=== PATIENT | male | born 1985 | race Caucasian/White ===

== ENCOUNTER 2017-08-15 15:31 | Emergency (ER) | payer BC, OTHER ==
[2017-08-15] MEDS ORDERED: Sodium Chloride 0.9% 10 ML Syringe FLUSH PRN (15:46)
[2017-08-15] MEDS ORDERED: Lactated Ringers 1,000 ML IV SCH (16:00)
[2017-08-15 17:07] LABS: CHLORIDE,CL 103 mmol/L (98-107); SODIUM,NA 142 mmol/L (136-145)
--- NOTE | 2017-08-15 19:18 | EDM.PDOC ---
ED HPI GENERAL MEDICAL PROBLEM - General Chief Complaint: General Time Seen by Provider: 08/15/17 15:34 Source of Information: Reports: Patient History Limitations: Reports: No Limitations - History of Present Illness INITIAL COMMENTS - FREE TEXT/NARRATIVE: Pt. presents to ER with complaints of CO exposure. States that he was using a "K12" type saw in his enclosed basement trying to cut an egress hole. Pt. states that he began to feel somewhat lightheaded and weak. He denies any chest pain or shortness of breath. No weakness. Pt. states that he was exerting himself as well which may have contributed to how he is feeling. He denies and headache. No nausea, vomiting, or diarrhea reported. He denies any prodrome prior to this event. Onset: Today Location: Reports: Generalized - Related Data Allergies Allergy/AdvReac Type Severity Reaction Status Date / Time No Known Drug Allergies Allergy Other Verified 09/10/15 21:01 Home Meds: Home Meds Fexofenadine/Pseudoephedrine [Key-D 24 Hour Tablet] 1 tab PO DAILY 09/10/15 [History] Past Medical History - Past Health History Medical/Surgical History: Denies Medical/Surgical History HEENT History: Reports: Allergic Rhinitis Social & Family History - Family History Family Medical History: Noncontributory ED ROS GENERAL - Review of Systems Review Of Systems: See Below Constitutional: Reports: Weakness HEENT: Reports: No Symptoms Respiratory: Reports: No Symptoms. Denies: Shortness of Breath, Wheezing, Cough Cardiovascular: Reports: Lightheadedness. Denies: Chest Pain, Claudication, Dyspnea on Exertion, Orthopnea, Palpitations, PND, Syncope Endocrine: Reports: No Symptoms GI/Abdominal: Reports: No Symptoms : Reports: No Symptoms Musculoskeletal: Reports: No Symptoms Skin: Reports: No Symptoms Neurological: Reports: No Symptoms Psychiatric: Reports: No Symptoms Hematologic/Lymphatic: Reports: No Symptoms Immunologic: Reports: No Symptoms ED EXAM, GENERAL - Physical Exam Exam: See Below Exam Limited By: No Limitations General Appearance: Alert, Lethargic Eye Exam: Bilateral Eye: EOMI, Normal Fundi, Normal Inspection, PERRL Ears: Normal External Exam, Normal Canal, Hearing Grossly Normal, Normal TMs Ear Exam: Bilateral Ear: Auricle Normal, Canal Normal, TM normal Nose: Normal Inspection, Normal Mucosa, No Blood Throat/Mouth: Normal Inspection, Normal Lips, Normal Teeth, Normal Gums, Normal Oropharynx, Normal Voice, No Airway Compromise Head: Atraumatic, Normocephalic Neck: Normal Inspection, Supple, Non-Tender, Full Range of Motion Respiratory/Chest: No Respiratory Distress, Lungs Clear, Normal Breath Sounds, No Accessory Muscle Use, Chest Non-Tender Cardiovascular: Normal Peripheral Pulses, Regular Rate, Rhythm, No Edema, No Gallop, No JVD, No Murmur, No Rub GI/Abdominal: Normal Bowel Sounds, Soft, Non-Tender, No Organomegaly, No Distention, No Abnormal Bruit, No Mass Back Exam: Normal Inspection, Full Range of Motion, NT Extremities: Normal Inspection, Normal Range of Motion, Non-Tender, Normal Capillary Refill, No Pedal Edema Neurological: Alert, Oriented, CN II-XII Intact, Normal Cognition, Normal Gait, Normal Reflexes, No Motor/Sensory Deficits Psychiatric: Normal Affect, Normal Mood Skin Exam: Warm, Dry, Intact, Normal Color, No Rash Lymphatic: No Adenopathy EKG INTERPRETATION Rhythm: NSR [place]: Normal P-Wave: Present QRS: Normal ST-T: Normal QT: Normal Comparison: NA - No Prior EKG Course - Orders/Labs/Meds Orders: Active Orders 24 hr Category Date Time Status EKG Documentation Completion [RC] STAT Care 08/15/17 15:47 Active Oxygen Therapy [RC] PRN Care 08/15/17 15:46 Active Lactated Ringers [Ringers, Lactated] 1,000 ml Med 08/15/17 16:00 Active IV ASDIRECTED Sodium Chloride 0.9% [Saline Flush] Med 08/15/17 15:46 Active 10 ml FLUSH ASDIRECTED PRN Peripheral IV Insertion Adult [OM.PC] Routine Oth 08/15/17 15:47 Ordered Medication Orders Lactated Ringer's (Ringers, Lactated) 1,000 mls @ 500 mls/hr IV ASDIRECTED HAILEY Sodium Chloride (Saline Flush) 10 ml FLUSH ASDIRECTED PRN PRN Reason: Keep Vein Open Labs: Laboratory Tests 08/15/17 08/15/17 08/15/17 Range/Units 16:20 16:20 16:20 WBC 8.8 (4.0-10.0) x10^3/uL RBC 5.61 (4.5-6.0) x10^6/uL Hgb 17.3 (14.0-18.0) g/dL Hct 48.4 (40.0-52.0) % MCV 86.3 (78.0-93.0) fL MCH 30.8 (26.0-32.0) pg MCHC 35.7 (32.0-36.0) g/dL RDW Coeff of Duyen 13.8 (10.0-15.0) % Plt Count 187 (130-400) x10^3/uL Neut % (Auto) 72.6 (50.0-80.0) % Lymph % (Auto) 15.3 L (25.0-50.0) % Coles % (Auto) 9.1 (2.0-11.0) % Eos % (Auto) 2.8 (0.0-4.0) % Baso % (Auto) 0.2 (0.2-1.2) % PT 9.9 (9.6-11.4) SEC INR 0.9 L (2.0-3.5) Sodium 142 (136-145) mmol/L Potassium 3.6 (3.5-5.1) mmol/L Chloride 103 (98-107) mmol/L Carbon Dioxide 27 (21-32) mmol/L Anion Gap 15.6 (10-20) mmol/L BUN 18 (7-18) mg/dL Creatinine 1.3 (0.70-1.30) mg/dL Est Cr Clr Drug Dosing TNP Estimated GFR (MDRD) > 60 Glucose 97 (74-106) mg/dL Calcium 10.0 (8.5-10.1) mg/dL Corrected Calcium 9.52 (8.5-10.1) mg/dL Phosphorus 3.0 (2.6-4.7) mg/dL Magnesium 2.1 (1.8-2.4) mg/dL Total Bilirubin 0.5 (0.2-1.0) mg/dL AST 34 (15-37) U/L ALT 69 H (16-63) U/L Alkaline Phosphatase 65 (46-116) U/L Troponin I < 0.017 (<=0.056) ng/mL C-Reactive Protein < 0.2 (<=0.9) mg/dL NT-Pro-B Natriuret Pep 52 (<=125) pg/mL Total Protein 8.2 (6.4-8.2) g/dL Albumin 4.6 (3.4-5.0) g/dL Globulin 3.6 Albumin/Globulin Ratio 1.28 Meds: Medications Generic Name Dose Route Start Last Admin Trade Name Amparo PRN Reason Stop Dose Admin Lactated Ringer's 1,000 mls @ 500 mls/hr 08/15/17 16:00 Ringers, Lactated IV ASDIRECTED HAILEY Sodium Chloride 10 ml 08/15/17 15:46 Saline Flush FLUSH ASDIRECTED PRN Keep Vein Open - Re-Assessments/Exams Free Text/Narrative Re-Assessment/Exam: 08/15/17 19:22 Pt. initial CO reading on CO monitor was 11. Pt. placed on NRB at 15L/min over approx. 2 hours. CO reading at discharge was 7 at time of discharge and pt. was feeling better. Departure - Departure Time of Disposition: 19:27 Disposition: Home, Self-Care 01 Clinical Impression: Carbon monoxide poisoning, Dehydration - Discharge Information Instructions: Carbon Monoxide Poisoning, [id number] Referrals: PCP,Not In Area [Primary Care Provider] - Forms: ED Department Discharge Additional Instructions: Follow-up in clinic as needed. Drink plenty of fluids. Return to ER if increased shortness of breath or chest pain. - My Orders Last 24 Hours: My Active Orders 08/15/17 15:46 Oxygen Therapy [RC] PRN Sodium Chloride 0.9% [Saline Flush] 10 ml FLUSH ASDIRECTED PRN 08/15/17 15:47 EKG Documentation Completion [RC] STAT Peripheral IV Insertion Adult [OM.PC] Routine 08/15/17 16:00 Lactated Ringers [Ringers, Lactated] 1,000 ml IV ASDIRECTED - Assessment/Plan Last 24 Hours: My Active Orders 08/15/17 15:46 Oxygen Therapy [RC] PRN Sodium Chloride 0.9% [Saline Flush] 10 ml FLUSH ASDIRECTED PRN 08/15/17 15:47 EKG Documentation Completion [RC] STAT Peripheral IV Insertion Adult [OM.PC] Routine 08/15/17 16:00 Lactated Ringers [Ringers, Lactated] 1,000 ml IV ASDIRECTED
[2017-08-15 22:37] VITALS: BP 128/76
== END 2017-08-15 19:04 | disposition home or self-care (01) ==
LOC: VM.ED 15:31
DX: T58.8X1A Toxic effect of carbon monoxide from other source, accidental (unintentional), initial encounter (principal); E86.0 Dehydration; Z79.899 Other long term (current) drug therapy
CPT/HCPCS: 36415; 80053; 83735; 83880; 84100; 84484; 85025; 85610; 86140; 93005; 94760; 96360; 99284

== ENCOUNTER 2022-05-03 04:50 | Emergency (ER) | payer OTHER ==
[2022-05-03 05:37] LABS: ANION GAP 9.9 mmol/L (5-15); CHLORIDE,CL 104 mmol/L (98-107); ESTIMATED GFR 100 mL/min (>=60); SODIUM,NA 142 mmol/L (136-145)
[2022-05-03] MEDS ORDERED: Ketorolac 30 MG/ML SDV IVPUSH ONE (06:13)
[2022-05-03] MEDS ORDERED: Ondansetron 4 MG/2 ML SDV IVPUSH ONE (06:13)
[2022-05-03] MEDS ORDERED: Iopamidol 755 Mg/ML 100 ML Bottle IVPUSH ONE (07:29)
[2022-05-03 09:02] VITALS: BP 113/69; PULSE 63
== END 2022-05-03 09:11 | disposition home or self-care (01) ==
LOC: VM.ED 04:50 → MERGE 04:50 → VM.ED 09:11
DX: G43.909 Migraine, unspecified, not intractable, without status migrainosus (principal)
CPT/HCPCS: 36415; 70450; 70496; 80053; 83735; 85025; 86140; 96374; 96375; 99284; 99284-25; J1885; J2405; Q9967

== ENCOUNTER 2022-05-07 15:46 | Emergency (ER) | payer OTHER ==
[2022-05-07] MEDS ORDERED: Ketorolac 30 MG/ML SDV IM ONE (16:18)
[2022-05-07] MEDS ORDERED: Ondansetron 4 MG/2 ML SDV IM ONE (16:18)
[2022-05-07 16:26] VITALS: BP 128/89; PULSE 63
== END 2022-05-07 16:54 | disposition home or self-care (01) ==
LOC: VM.ED 15:46
DX: G43.909 Migraine, unspecified, not intractable, without status migrainosus (principal); F17.290 Nicotine dependence, other tobacco product, uncomplicated; Z79.899 Other long term (current) drug therapy
CPT/HCPCS: 96372; 99283; J1885; J2405